=== PATIENT | female | born 1950 | race Caucasian/White ===

== ENCOUNTER 2019-12-30 08:45 | Inpatient (IN) | payer MEDICARE ==
[~2019-12-30] VITALS: Ht 177.8 cm; Wt 111.1 kg
[~2019-12-30 08:45] MED LIST: FERR325T63 PO; MULT-658 PO; OMEG-76 PO; RESV100C PO; VIT B12 PO; VIT D PO
[2019-12-30] MEDS ORDERED: DILTIAZEM 5 MG/ML, 5ML ONE (09:14)
[2019-12-30] MEDS ORDERED: DILTIAZEM 5 MG/ML, 5ML IV ONE (09:30)
[2019-12-30] MEDS ORDERED: SODIUM CHLORIDE FLUSH 10ML SYR IVF ONE (09:30)
[2019-12-30] MEDS: DILTIAZEM 125 MG in SODIUM CHLORIDE 0.9% 100 ML IV SCH ×3 (09:46→21:38)
[2019-12-30 09:54] LABS: BASOPHILS # (AUTO) 0.05 x10^3/uL (0-0.1); BASOPHILS % (AUTO) 1 % (0-1); EOSINOPHILS % (AUTO) 3 % (1-7); LYMPHOCYTES # (AUTO) 2.24 x10^3/uL (1-3.4); LYMPHOCYTES % (AUTO) 29 % (22-44); MD NO; MEAN CORPUSCULAR HGB CONC 32.2 g/dL (32.4-35.8); MEAN CORPUSCULAR VOLUME 89.9 fL (80-100); MEAN PLATELET VOLUME 9.4 fL (7.4-10.4); MONOCYTES # (AUTO) 0.51 x10^3/uL (0.2-0.8); MONOCYTES % (AUTO) 7 % (2-9); NEUTROPHILS # (AUTO) 4.71 x10^3/uL (1.8-6.8); NEUTROPHILS % (AUTO) 61 % (42-75); PLATELET COUNT 253 x10^3/uL (130-400); RED CELL DISTRIBUTION WIDTH 14.9 % (9.6-15.2)
[2019-12-30 10:04] LABS: INTERNATIONAL NORMALIZED RATIO 1.26 (0.93-1.1); PROTHROMBIN TIME 13.4 Seconds (9.6-11.5)
[2019-12-30 10:07] LABS: ALANINE AMINOTRANSFERASE 168 U/L (12-78); ALBUMIN 3.7 g/dL (3.4-5.0); ANION GAP 6 mmol/L (5-15); CHLORIDE 115 mmol/L (98-107)
[2019-12-30 10:10] LABS: ALKALINE PHOSPHATASE 142 U/L (45-117); TOTAL PROTEIN 6.4 g/dL (6.4-8.2); TROPONIN I < 0.015 ng/mL (0.000-0.045)
--- NOTE | 2019-12-30 10:55 | NUR ---
BP LOW, SEE VS. CARDIZEM GTT STOPPED. PROVIDER NOTIFIED.
--- NOTE | 2019-12-30 11:10 | NUR ---
PT TO CT.
[2019-12-30] MEDS ORDERED: OMNIPAQUE 350 MG/ML, 100ML BOTTLE ONE (11:28)
[2019-12-30] MEDS ORDERED: SODIUM CHLORIDE FLUSH 10ML SYR IVF PRN (12:30)
[2019-12-30] MEDS ORDERED: ONDANSETRON 2MG/ML, 2ML IVPush PRN (13:00)
[2019-12-30] MEDS ORDERED: DILTIAZEM 5 MG/ML, 5ML IVPush PRN (13:00)
[2019-12-30] MEDS ORDERED: ACETAMINOPHEN 325 MG TABLET PO PRN (13:00)
[2019-12-30] MEDS: FUROSEMIDE 20 MG/2 ML IV SCH (13:00)
[2019-12-30] MEDS ORDERED: DOCUSATE 100 MG CAPSULE PO PRN (13:00)
[2019-12-30] MEDS ORDERED: METO25TA91 PO (13:09)
[2019-12-30] MEDS ORDERED: RIVA15TA PO (13:09)
--- NOTE | 2019-12-30 13:16 | NUR ---
PT TO BR INDEPENDENTLY.
[2019-12-30] MEDS ORDERED: FUROSEMIDE 20 MG/2 ML ONE (13:19)
[2019-12-30 13:50] LABS: CHOL/HDL RATIO 2.4; CHOLESTEROL, TOTAL 107 mg/dL (140-239); HDL CHOL % 42 % (28-40); HDL CHOLESTEROL (DIRECT) 45 mg/dL (40-60); LDL CHOLESTEROL,CALCULATED 47 mg/dL (54-169); TRIGLYCERIDES 75 mg/dL (50-200); TROPONIN I < 0.015 ng/mL (0.000-0.045); VLDL CHOLESTEROL 15 mg/dL (0-25)
[2019-12-30 14:33] LABS: MICROSCOPIC NOT IND
[2019-12-30 14:43] VITALS: BP 121/70
[2019-12-30] MEDS ORDERED: RIVAROXABAN 2.5 MG TABLET PO ONE (17:00)
[2019-12-30 19:14] LABS: TROPONIN I < 0.015 ng/mL (0.000-0.045)
[2019-12-30] MEDS: SODIUM CHLORIDE FLUSH 10ML SYR IVF SCH (21:00)
[2019-12-30 22:16] VITALS: BP 125/86
[2019-12-30] MEDS: MELATONIN 5 MG TABLET PO PRN (22:20)
[2019-12-31 01:40] VITALS: BP 101/76
[2019-12-31] MEDS: DILTIAZEM 125 MG in SODIUM CHLORIDE 0.9% 100 ML IV SCH (03:39)
[2019-12-31 05:31] LABS: BASOPHILS # (AUTO) 0.03 x10^3/uL (0-0.1); BASOPHILS % (AUTO) 1 % (0-1); EOSINOPHILS # (AUTO) 0.21 x10^3/uL (0-0.4); EOSINOPHILS % (AUTO) 3 % (1-7); LYMPHOCYTES # (AUTO) 1.82 x10^3/uL (1-3.4); LYMPHOCYTES % (AUTO) 25 % (22-44); MD NO; MEAN CORPUSCULAR HEMOGLOBIN 29.4 pg (27.0-34.8); MEAN CORPUSCULAR HGB CONC 32.7 g/dL (32.4-35.8); MEAN CORPUSCULAR VOLUME 89.9 fL (80-100); MEAN PLATELET VOLUME 9.6 fL (7.4-10.4); MONOCYTES # (AUTO) 0.58 x10^3/uL (0.2-0.8); MONOCYTES % (AUTO) 8 % (2-9); NEUTROPHILS # (AUTO) 4.52 x10^3/uL (1.8-6.8); NEUTROPHILS % (AUTO) 63 % (42-75); PLATELET COUNT 214 x10^3/uL (130-400); RED BLOOD COUNT 5.23 x10^6/uL (3.82-5.3); RED CELL DISTRIBUTION WIDTH 15.2 % (9.6-15.2)
[2019-12-31 05:44] LABS: ALBUMIN 3.4 g/dL (3.4-5.0); CHLORIDE 115 mmol/L (98-107)
[2019-12-31 05:50] LABS: ALANINE AMINOTRANSFERASE 126 U/L (12-78); ALKALINE PHOSPHATASE 109 U/L (45-117); ANION GAP 5 mmol/L (5-15); CALCIUM 8.8 mg/dL (8.5-10.1); CREATININE 1.06 mg/dL (0.55-1.02); TOTAL PROTEIN 5.9 g/dL (6.4-8.2)
[2019-12-31 07:05] VITALS: BP 121/86
[2019-12-31] MEDS ORDERED: CARVEDILOL 6.25 MG TABLET PO SCH ×2 (08:00→12:00)
[2019-12-31] MEDS: FUROSEMIDE 20 MG/2 ML IV SCH (08:25)
[2019-12-31] MEDS: SODIUM CHLORIDE FLUSH 10ML SYR IVF SCH ×2 (08:26→21:56)
[2019-12-31] MEDS: MULTIVITAMIN 1 TABLET PO SCH (08:26)
[2019-12-31] MEDS ORDERED: LISINOPRIL 5 MG TABLET PO SCH (09:00)
[2019-12-31 12:18] VITALS: BP 123/79
[2019-12-31 12:50] VITALS: BP 103/70
[2019-12-31] MEDS ORDERED: RIVAROXABAN 20 MG TABLET PO SCH (17:00)
[2019-12-31 21:50] VITALS: BP 121/82
[2019-12-31] MEDS: CARVEDILOL 12.5 MG TABLET PO SCH (21:56)
[2019-12-31] MEDS: MELATONIN 5 MG TABLET PO PRN (22:00)
[2020-01-01 03:56] VITALS: BP 108/65
[2020-01-01 05:52] LABS: ANION GAP 6 mmol/L (5-15); CALCIUM 8.4 mg/dL (8.5-10.1); CHLORIDE 114 mmol/L (98-107); CREATININE 0.87 mg/dL (0.55-1.02)
[2020-01-01 06:49] VITALS: BP 126/90
[2020-01-01] MEDS ORDERED: POTA20TA6 PO (08:11)
[2020-01-01] MEDS ORDERED: CARV12.52 PO (08:11)
[2020-01-01] MEDS ORDERED: FURO40TA6 PO (08:11)
[2020-01-01] MEDS ORDERED: LISI5TAB7 PO (08:11)
[2020-01-01] MEDS ORDERED: LISINOPRIL 5 MG TABLET PO SCH (09:00)
[2020-01-01] MEDS ORDERED: FUROSEMIDE 40 MG TABLET PO SCH (09:00)
[2020-01-01] MEDS: CARVEDILOL 12.5 MG TABLET PO SCH (09:45)
[2020-01-01] MEDS: MULTIVITAMIN 1 TABLET PO SCH (09:45)
[2020-01-01] MEDS: SODIUM CHLORIDE FLUSH 10ML SYR IVF SCH (09:46)
== END 2020-01-01 10:25 | disposition home or self-care (01) | DRG 308 ==
LOC: ED 09:18 → EDIP 12:24 → SUATTDRO 12:30 → 5SO 13:45 → DCLOUNGE 01-01 10:19
PROVIDERS: ADMIT Hospitalist; ATTEND Hospitalist
DX: I48.91 Unspecified atrial fibrillation (principal); I50.43 Acute on chronic combined systolic (congestive) and diastolic (congestive) heart failure; I31.3 Pericardial effusion (noninflammatory); Z88.8 Allergy status to other drugs, medicaments and biological substances; D75.1 Secondary polycythemia; I34.0 Nonrheumatic mitral (valve) insufficiency; Z90.49 Acquired absence of other specified parts of digestive tract; K76.1 Chronic passive congestion of liver; Z79.01 Long term (current) use of anticoagulants; Z80.0 Family history of malignant neoplasm of digestive organs; Z98.84 Bariatric surgery status
CPT/HCPCS: 36415; 71045; 74177; 80048; 80053; 80061; 80074; 81003; 82728; 83735; 83880; 84100; 84443; 84484; 85025; 85610; 85730; 93005; 93306; 93970; 99285; G0378; Q9967; J1940

== ENCOUNTER 2020-01-21 08:32 | Emergency (ER) | payer MEDICARE ==
[~2020-01-21] VITALS: Ht 177.8 cm; Wt 104.7 kg
[~2020-01-21 08:32] MED LIST changes: +CARV12.52 PO; +FURO40TA6 PO; +LISI5TAB7 PO; +METO25TA91 PO; +POTA20TA6 PO; +RIVA15TA PO
--- NOTE | 2020-01-21 08:52 | NUR ---
PT HAS CO RIGHT FOOT INJURY BETWEEN 4TH/ 5TH TOE. PT STATES THE REDNESS HAS SPREAD OVER THE FOOT W BLISTERS. PT STATES IT IS PAINFUL TO TOUCH. DENIES CALF PAIN, CP OR SOB. FOOT IS SWOLLEN AND RED W DRAINAGE.
[2020-01-21] MEDS ORDERED: SODIUM CHLORIDE FLUSH 10ML SYR IVF ONE (09:00)
[2020-01-21] MEDS ORDERED: AMPICILLIN/SULBACTAM 3 GM in SODIUM CHLORIDE 0.9% 100 ML IV ONE (09:00)
[2020-01-21] MEDS ORDERED: VANCOMYCIN PER PHARMACY MC ONE (09:00)
[2020-01-21] MEDS ORDERED: NEOSPORIN OINT. PKT 1 PACKET ONE (09:04)
[2020-01-21] MEDS ORDERED: PHARMACOKINETIC CONSULTATION MC ONE (09:30)
[2020-01-21] MEDS ORDERED: VANCOMYCIN 2,000 MG in SODIUM CHLORIDE 0.9% 500 ML IV ONE (09:30)
--- NOTE | 2020-01-21 09:44 | NUR ---
LABS, BLOOD CULTURES, IV ESTABLISHED. ABX NOW INFUSING. VSS
[2020-01-21 10:06] LABS: ALBUMIN 3.8 g/dL (3.4-5.0); ANION GAP 4 mmol/L (5-15); CALCIUM 9.2 mg/dL (8.5-10.1); CHLORIDE 115 mmol/L (98-107); CREATININE 1.17 mg/dL (0.55-1.02)
[2020-01-21 10:22] LABS: BASOPHILS # (AUTO) 0.06 x10^3/uL (0-0.1); BASOPHILS % (AUTO) 1 % (0-1); EOSINOPHILS # (AUTO) 0.37 x10^3/uL (0-0.4); EOSINOPHILS % (AUTO) 4 % (1-7); LYMPHOCYTES # (AUTO) 1.81 x10^3/uL (1-3.4); LYMPHOCYTES % (AUTO) 21 % (22-44); MD NO; MEAN CORPUSCULAR HEMOGLOBIN 28.6 pg (27.0-34.8); MEAN CORPUSCULAR HGB CONC 32.2 g/dL (32.4-35.8); MEAN PLATELET VOLUME 10.1 fL (7.4-10.4); MONOCYTES # (AUTO) 0.61 x10^3/uL (0.2-0.8); MONOCYTES % (AUTO) 7 % (2-9); NEUTROPHILS # (AUTO) 5.64 x10^3/uL (1.8-6.8); NEUTROPHILS % (AUTO) 66 % (42-75); PLATELET COUNT 222 x10^3/uL (130-400); RED BLOOD COUNT 5.98 x10^6/uL (3.82-5.3); RED CELL DISTRIBUTION WIDTH 14.3 % (9.6-15.2)
[2020-01-21 11:08] VITALS: BP 104/65
--- NOTE | 2020-01-21 11:10 | NUR ---
TASK RN: PT RESTING IN NO ACUTE DISTRESS. VSS. AWAITING DC INSTRUCTIONS.
--- NOTE | 2020-01-21 12:19 | NUR ---
WAITING FOR VANVO TO FINISH INFUSING, THEN DC.
--- NOTE | 2020-01-21 12:36 | NUR ---
DPatient/Caregiver given discharge instructions and they have confirmed that they understand the instructions. Patient ambulatory with steady gait.
== END 2020-01-21 12:38 | disposition home or self-care (01) ==
LOC: ED 09:05
DX: S91.331A Puncture wound without foreign body, right foot, initial encounter (principal); L03.115 Cellulitis of right lower limb; I48.91 Unspecified atrial fibrillation; I50.9 Heart failure, unspecified; X58.XXXA Exposure to other specified factors, initial encounter; Y93.89 Activity, other specified; Y92.89 Other specified places as the place of occurrence of the external cause; Y99.8 Other external cause status
CPT/HCPCS: 36415; 73630; 80048; 82040; 83605; 85025; 87040; 96365; 96367; 99284; J0295; J3370; J7040

== ENCOUNTER → 2020-09-19 | Outpatient (CLI) | payer MEDICARE | END | disposition home or self-care (01) | LOC: CFH 08:07 | PROVIDERS: ATTEND Internal Medicine Clinical Cardiac Electrophysiology | DX: I08.8 Other rheumatic multiple valve diseases (principal) | CPT/HCPCS: 93306 ==

== ENCOUNTER 2020-12-22 08:52 | Emergency (ER) | payer MEDICARE ==
[~2020-12-22] VITALS: Ht 175.3 cm; Wt 102.7 kg
[2020-12-22 09:01] VITALS: BP 121/61
--- NOTE | 2020-12-22 09:20 | NUR ---
pt presents to ed with c/o insect bit to R forearm that has grown in size since wednesday. swelling/erythema noted to R forearm, pt states itching but denies pain. cms intact.
--- NOTE | 2020-12-22 10:09 | NUR ---
pt eductaed on discharge and follow-up, verbalized understanding. ambulatory to discharge with steady gait.
== END 2020-12-22 10:12 | disposition home or self-care (01) ==
LOC: ED 09:50
DX: L03.113 Cellulitis of right upper limb (principal); I50.9 Heart failure, unspecified; I48.91 Unspecified atrial fibrillation
CPT/HCPCS: 99283